=== PATIENT | female | born 2000 | race Caucasian/White ===

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

== ENCOUNTER → 2022-04-27 | Emergency (ER) | payer MEDICAID ==
[~2022-04-27] VITALS: Ht 154.9 cm; Wt 84.8 kg
[~2022-04-27] MED LIST: KETOROLAC TROMETHAMINE 30 MG VIAL IM ONE
[2022-04-27 22:25] VITALS: BP_SYST 121
--- NOTE | 2022-04-27 22:30 | NUR ---
PATIENT HAS HAD VOMITTING/DIARRHEA SINCE 399 WITHOUT RELIEF. NO PAIN PRESENT
[2022-04-27 23:18] LABS: BASOPHILS % (AUTO) 0.1 % (0.0-2.0); EOSINOPHILS # (AUTO) 0.1 K/uL (0.0-0.4); HEMOGLOBIN 13.8 g/dL (12.0-16.0); LYMPHOCYTES # (AUTO) 1.9 K/uL (1.0-5.5); LYMPHOCYTES % (AUTO) 30.5 % (20.5-51.5); MEAN CORPUSCULAR HEMOGLOBIN 28 pg (27-31); MEAN CORPUSCULAR HGB CONC 35 % (32-36); MEAN CORPUSCULAR VOLUME 82 fL (79.0-98.0); MONOCYTES # (AUTO) 0.5 K/uL (0.0-1.0); MONOCYTES % (AUTO) 8.3 % (1.7-9.3); NEUTROPHILS # (AUTO) 3.7 K/uL (1.8-7.7); NEUTROPHILS % (AUTO) 60.1 % (40.0-70.0); PLATELET COUNT (AUTO) 330 K/uL (130-430); RED BLOOD CELL COUNT(AUTO) 4.91 MIL/uL (4.2-6.2); RED CELL DISTRIBUTION WIDTH 12.9 % (9.0-15.0); WHITE BLOOD COUNT (AUTO) 6.1 K/uL (4.5-11.0)
[2022-04-27 23:25] LABS: CREATININE 0.66 mg/dL (0.55-1.30); POTASSIUM 3.4 mmol/L (3.5-5.1)
[2022-04-27 23:29] LABS: TOTAL BILIRUBIN 1.3 mg/dL (0.0-1.0)
[2022-04-28 06:05] VITALS: BP_SYST 120
[2022-04-28 07:45] LABS: BILIRUBIN,URINE NEGATIVE (NEGATIVE); BLOOD, URINE NEGATIVE (NEGATIVE); CLARITY/URINE CLEAR (CLEAR); COLOR,URINE YELLOW (YELLOW); GLUCOSE,URINE NEGATIVE (NEGATIVE); KETONES,URINE TRACE (NEGATIVE); LEUKOCYTE ESTERASE ,URINE NEGATIVE (NEGATIVE); NITRITE, URINE NEGATIVE (NEGATIVE); PROTEIN URINE NEGATIVE (NEGATIVE); UROBILINOGEN,URINE 0.2 (0.2-1.0)
[2022-04-28 08:01] LABS: HCG,QUAL RESULT NEGATIVE (NEGATIVE)
--- NOTE | 2022-04-28 08:20 | NUR ---
First contact made with patient. Pt alert and oriented x 3; ambulatory with steady gait. Pt initially came to ER for vomiting and diarrhea. Took antidiarrheal medication [employer]IVE [employer]ISTANT. Pt now being discharged per Dr Tyler. Discharge paperwork provided; understanding verbalized. No rx given. Pt advised to return to ER for worsening sx and f/u with PCP in 1 week. Pt reported no pain; stated her abd pain went away afer taking antidiarrheal medication [employer] ADMINISTRATIVE ASSISTANT.
== END | disposition home or self-care (01) ==
LOC: SED 21:58
DX: K52.9 Noninfective gastroenteritis and colitis, unspecified (principal); R10.31 Right lower quadrant pain; R11.10 Vomiting, unspecified; Z79.899 Other long term (current) drug therapy
CPT/HCPCS: 36415; 76376; 80053; 81003; 83690; 84703; 85025; 96372; 99284; J1885